=== PATIENT | male | born 1955 | race Hispanic/Latino ===

== ENCOUNTER 2021-12-09 10:10 | Emergency (ER) | payer BC, OTHER ==
[~2021-12-09] VITALS: Ht 180.3 cm; Wt 107.5 kg
[2021-12-09] MEDS ORDERED: HYDROCODONE/ACETAMINOPHEN 10/325 MG TAB PO ONE (12:30)
[2021-12-09] MEDS ORDERED: KETOROLAC 60 MG VIAL (30MG/ML) IM ONE (12:30)
[2021-12-09] MEDS ORDERED: CYCLOBENZAPRINE HCL 10 MG TABLET PO ONE (12:30)
[2021-12-09 12:50] VITALS: BP 147/70
[2021-12-09] MEDS ORDERED: NAPR-1180 PO (14:07)
== END 2021-12-09 14:40 | disposition home or self-care (01) ==
LOC: EDH 10:10
DX: S76.911A Strain of unspecified muscles, fascia and tendons at thigh level, right thigh, initial encounter (principal); Z79.899 Other long term (current) drug therapy; X58.XXXA Exposure to other specified factors, initial encounter; Y93.89 Activity, other specified; Y92.89 Other specified places as the place of occurrence of the external cause; Y99.8 Other external cause status
CPT/HCPCS: 73502; 73552; 73562; 93971; 96372; 99284; J1885